=== PATIENT | female | born 1975 | race Caucasian/White ===

== ENCOUNTER → 2016-08-02 | Outpatient (CLI) | payer OTHER ==
[~2016-08-02] MED LIST: NO HOME MEDICATIONS; PRENATAL VITAMI1 TA5 PO; ZOLOFT
== END ==
LOC: MC.RAD 08:00
DX: Z12.31 Encounter for screening mammogram for malignant neoplasm of breast (principal)

== ENCOUNTER → 2018-10-30 | Outpatient (CLI) | payer OTHER ==
[~2018-10-30] MED LIST changes: +IBU800 M1 PO
== END ==
LOC: MC.RAD 08:45
DX: Z12.31 Encounter for screening mammogram for malignant neoplasm of breast (principal); N64.89 Other specified disorders of breast

== ENCOUNTER → 2018-11-06 | Outpatient (CLI) | payer OTHER | LOC: MC.RAD 08:27 | DX: N64.89 Other specified disorders of breast (principal) | CPT/HCPCS: G0279 ==

== ENCOUNTER → 2020-12-29 | Outpatient (CLI) | payer OTHER | LOC: MC.RAD 09:45 | DX: Z12.31 Encounter for screening mammogram for malignant neoplasm of breast (principal) ==

== ENCOUNTER 2021-06-28 03:36 | Observation (INO) | payer OTHER ==
[~2021-06-28] VITALS: Ht 175.4 cm; Wt 70.5 kg
[2021-06-28 04:10] LABS: COLLECTION METHOD CLEAN CATCH
[2021-06-28 04:12] LABS: BASO # 0.1 K/mm3 (0.0-0.2); BASO % 0.4 % (0.0-2.0); EOS % 0.1 % (0.0-4.0); GRAN # 10.6 K/mm3 (1.4-6.5); GRAN % 86.6 % (42.2-75.2); HEMOGLOBIN 13.1 g/dl (12.5-16.0); LYMPH % 7.9 % (20.0-51.0); MEAN CELL VOLUME 83 fl (80.0-100.0); MEAN CORPUSCULAR HEMOGLOBIN 28 pg (27-31); MEAN CORPUSCULAR HGB CONC 34 g/dl (33.0-37.0); MEAN PLATELET VOLUME 9.3 fl (7.4-10.4); MONO # 0.6 K/mm3 (0.1-0.6); MONO % 4.7 % (1.7-9.3); PLATELET COUNT 220 K/mm3 (130-400); REDCELL DISTRIBUTION WIDTH-CV 13.8 % (11.5-14.5)
[2021-06-28 04:18] LABS: MUCOUS Present (NOT PRESENT); PH 7 (5-8); SQUAMOUS EPITHELIAL 0-2 /hpf (0-10); URINE APPEARANCE Cloudy (CLEAR/HAZY); URINE BACTERIA None Seen /hpf (NONE SEEN); URINE BILIRUBIN Negative (NEGATIVE); URINE BLOOD 1+ (NEGATIVE); URINE COLOR Yellow (YELLOW); URINE GLUCOSE Negative (NEGATIVE); URINE KETONE Trace (NEGATIVE); URINE LEUKOCYTE ESTERASE Negative (NEGATIVE); URINE NITRATE Negative (NEGATIVE); URINE PROTEIN(semi-quant) Negative (NEGATIVE); URINE RBC 20-50 /hpf (0-2); URINE UROBILINOGEN Negative (NEGATIVE)
[2021-06-28 04:39] LABS: ALBUMIN 4.6 gm/dL (3.5-5.0); BILIRUBIN,TOTAL 0.6 mg/dL (0.2-1.2); C-REACTIVE PROTEIN 0.13 mg/dL (0.00-0.50); CALCIUM 9.1 mg/dL (8.4-10.2); CREATININE, serum 0.88 mg/dL (0.57-1.11); POTASSIUM 3.7 mmol/L (3.5-4.5); TOTAL PROTEIN 8.3 gm/dL (6.2-8.1)
[2021-06-28] MEDS ORDERED: NORCO 325 MG-51 TAB PO (07:26)
[2021-06-28 10:17] VITALS: BP 119/74; PULSE 71; TEMP 99
--- NOTE | 2021-06-28 11:45 | NUR ---
Patient states that she is beginning to have discomfort and is needing to urinate. Assisted up to the bathroom and gait is steady. Urinates and urine strained. No stones noted. Returns to room and given Morphine 2mg IV. Siderails up x2 and call light in reach. Allowed to rest.
--- NOTE | 2021-06-28 13:00 | NUR ---
Patient states she is feeling better and resting.
[2021-06-28 15:41] VITALS: TEMP 99.1
[2021-06-28 15:50] VITALS: BP 124/95; PULSE 65
--- NOTE | 2021-06-28 15:50 | NUR ---
Patient returns to room 2 per cart from PACU accompanied by Deepika RN and is awake and alert. Temp 97.9 and room air sats 100%. IV fluids infusing. Call light in reach and siderails up x2. Call light in reach. Taking sips of water. Given toast to eat.
[2021-06-28 16:05] VITALS: BP 120/73; PULSE 67
--- NOTE | 2021-06-28 16:05 | NUR ---
Tolerated toast and water. Complains of pain. States is having lower abdominal discomfort.
--- NOTE | 2021-06-28 16:06 | NUR ---
Medicated with Roxicodone 10mg po. Will continue to monitor.
[2021-06-28 16:20] VITALS: BP 135/77; PULSE 69
--- NOTE | 2021-06-28 16:20 | NUR ---
Resting without further complaints of pain.
--- NOTE | 2021-06-28 16:30 | NUR ---
Assisted up to the bathroom. Gait steady. Able to void and states is feeling better. IV discontinued.
--- NOTE | 2021-06-28 17:10 | NUR ---
Patient is dressed and given dismissal instructions. Instructed to remove stent on Friday and call office on Friday for follow up. Pain medication is ready to be picked up at [facility].
--- NOTE | 2021-06-28 17:14 | NUR ---
Patient dismissed to home driven by spouse [facility] and assisted into vehicle by this RN with instructions in hand.
== END 2021-06-28 17:15 | disposition home or self-care (01) ==
LOC: COL.ER 03:36 → INPTSU 06:06
PROVIDERS: Emergency Medicine; ADMIT Urology
DX: N20.1 Calculus of ureter (principal); Z79.891 Long term (current) use of opiate analgesic
CPT/HCPCS: C1769; C2617; J0690; J0696; J1100; J1885; J2270; J2405; J2704; J3010; J7030; Q9967

== ENCOUNTER → 2022-01-01 | Outpatient (CLI) | payer OTHER ==
[~2022-01-01] MED LIST changes: +NORCO 325 MG-51 TAB PO
== END ==
LOC: MC.RAD 08:29
DX: Z12.31 Encounter for screening mammogram for malignant neoplasm of breast (principal)

== ENCOUNTER → 2024-01-15 | Outpatient (CLI) | payer OTHER | LOC: MC.RAD 09:11 | DX: Z12.31 Encounter for screening mammogram for malignant neoplasm of breast (principal) ==